=== PATIENT | female | born 1960 ===

== ENCOUNTER → 2022-09-27 09:02 | Outpatient (CLI) | payer OTHER, SELFPAY ==
--- NOTE | ~2022-09-27 | MR_ITS ---
EXAMINATION: MR lumbar spine wo con DATE: 09/27/2022 09:45 INDICATION: Lumbar radiculopathy. Chronic low back pain. TECHNIQUE: Magnetic resonance imaging (MRI) of the lumbar spine was performed without intravenous con trast. Sequences included sagittal T2-weighted FSE, sagittal T2-weighted FS FSE, sagittal T1-weighted FSE, and axial T2-weighted FSE. COMPARISON: None FINDINGS: There is 3 degrees dextrocurvature lumbar spine. There is 3 mm retrolisthesis of L2 on L3. Vertebral body heights are normal. Intervertebral disc heights are normal. The distal spinal cord sig nal intensity is normal. The conus medullaris is at T12-L1. The following disc levels are specificall y discussed: L1-L2: The disc is bulging. There is mild bilateral facet joint osteoarthritis. There is mild bilater al neural foraminal stenosis. There is mild central canal stenosis. L2-L3: The disc is bulging. There is mild bilateral facet joint osteoarthritis. There is mild bilater al neural foraminal stenosis. There is no central canal stenosis. L3-L4: The disc is bulging. There is mild right and moderate left facet joint osteoarthritis. There i s mild bilateral neural foraminal stenosis. There is mild central canal stenosis. L4-L5: The disc does not extend beyond the endplate margin. There is severe bilateral facet joint ost eoarthritis. There is hypertrophy of the ligamentum flavum. There is mild bilateral neural foraminal stenosis. There is mild central canal stenosis. L5-S1: The disc does not extend beyond the endplate margin. There is severe right and moderate left f acet joint osteoarthritis. There is mild bilateral neural foraminal stenosis. There is no central can al stenosis. IMPRESSION: 1. Mild lumbar spondylosis. Reviewed, dictated and finalized at location E. ANALYST IMPRESSION: 1. Mild lumbar spondylosis.
== END ==
PROVIDERS: PCP Family Medicine; Visit Provider Physician Assistant
DX: M47.26 Other spondylosis with radiculopathy, lumbar region (principal)
CPT/HCPCS: 72148